=== PATIENT | female | born 1980 | race Caucasian/White ===

== ENCOUNTER 2016-10-31 13:16 | Emergency (ER) | payer OTHER ==
[2016-10-31 13:39] VITALS: BP 121/78; PULSE 70; RESP 16; TEMP 98.2; O2SAT 99
[2016-10-31] MEDS ORDERED: Sodium Chloride 0.9% 1,000 ML IV ONE (14:18)
--- NOTE | 2016-10-31 14:23 | C.PDOC ---
History Of Present Illness 35 y/o female hx of cholelithiasis presents to the ED with complaints of RUQ pain since last night with associated nausea and vomiting. Denies fever, chills SOB or any other complaints. Time Seen by Provider: 10/31/16 14:11 Chief Complaint (Nursing): Abdominal Pain History Per: Patient History/Exam Limitations: no limitations Onset/Duration Of Symptoms: Hrs Current Symptoms Are (Timing): Still Present Severity: Moderate Location Of Pain/Discomfort: RUQ Radiation Of Pain To:: None Quality Of Discomfort: "Pain" Associated Symptoms: Nausea, Vomiting. denies: Fever, Chest Pain Exacerbating Factors: None Alleviating Factors: None Recent travel outside of the [place]: No Past Medical History Reviewed: Historical Data, Nursing Documentation, Vital Signs Vital Signs: Last Vital Signs Temp 98.2 F 10/31/16 13:39 Pulse 70 10/31/16 13:39 Resp 16 10/31/16 13:39 BP 121/78 10/31/16 13:39 Pulse Ox 99 10/31/16 15:22 - Medical History PMH: Gall Bladder Disease Family History: States: Unknown Family Hx - Social History Hx Tobacco Use: No Hx Alcohol Use: No Hx Substance Use: No - Immunization History Hx Tetanus Toxoid Vaccination: No Hx Influenza Vaccination: No Hx Pneumococcal Vaccination: No Review Of Systems Except As Marked, All Systems Reviewed And Found Negative. Constitutional: Negative for: Fever Gastrointestinal: Positive for: Nausea, Vomiting, Abdominal Pain. Negative for : Diarrhea Genitourinary: Negative for: Vaginal Bleeding Physical Exam - Physical Exam Appears: Non-toxic, No Acute Distress Skin: Warm, Dry, No Rash Head: Atraumatic, Normacephalic Chest: Symmetrical Cardiovascular: Rhythm Regular Respiratory: Normal Breath Sounds, No Rales, No Rhonchi, No Wheezing Gastrointestinal/Abdominal: Soft, Tenderness (RUQ), No Guarding, No Rebound Neurological/Psych: Oriented x3, Normal Speech, Normal Cognition ED Course And Treatment O2 Sat by Pulse Oximetry: 99 (room air) Pulse Ox Interpretation: Normal Medical Decision Making Medical Decision Making: r/o cholecystitis - labs imaging pending [id number] notified, pt eloped from er Disposition - Disposition Disposition: ELOPEMENT - ER ONLY Disposition Time: 03:00 Condition: UNKNOWN - Clinical Impression Clinical Impression: Abdominal pain - Scribe Statement The provider has reviewed the documentation as recorded by the Fiordaliza Kent Provider Attestation: All medical record entries made by the Fiordaliza were at my direction and personally dictated by me. I have reviewed the chart and agree that the record accurately reflects my personal performance of the history, physical exam, medical decision making, and the department course for this patient. I have also personally directed, reviewed, and agree with the discharge instructions and disposition.
== END 2016-10-31 15:22 | disposition left against medical advice (07) ==
LOC: C.ER 13:16
DX: R10.11 Right upper quadrant pain (principal)

== ENCOUNTER 2017-03-22 12:44 | Emergency (ER) | payer SELFPAY ==
[2017-03-22 13:05] VITALS: RESP 20
--- NOTE | 2017-03-22 13:13 | C.PDOC ---
History Of Present Illness 36 year old female with Hx of gallbladder disease and stones presents to the ED c/o epigastric pain. Patient reports today pain is intense, constant associated with nausea. Patient reports taking Zantac with no relief. Patient denies fever , diarrhea, fever. Time Seen by Provider: 03/22/17 13:08 Chief Complaint (Nursing): Abdominal Pain History Per: Patient History/Exam Limitations: no limitations Onset/Duration Of Symptoms: Days Current Symptoms Are (Timing): Still Present Location Of Pain/Discomfort: Epigastric Radiation Of Pain To:: None Quality Of Discomfort: "Pain" Associated Symptoms: Nausea. denies: Fever, Chills, Vomiting, Diarrhea Alleviating Factors: None Recent travel outside of the [place]: No Additional History Per: Patient Abnormal Vaginal Bleeding: No Past Medical History Reviewed: Historical Data, Nursing Documentation, Vital Signs Vital Signs: Last Vital Signs Temp 97.8 F 03/22/17 15:51 Pulse 74 03/22/17 15:51 Resp 20 03/22/17 15:51 BP 110/68 03/22/17 15:51 Pulse Ox 98 03/22/17 15:51 - Medical History PMH: Gall Bladder Disease Surgical History: No Surg Hx Family History: States: Unknown Family Hx - Social History Hx Tobacco Use: No Hx Alcohol Use: No Hx Substance Use: No - Immunization History Hx Tetanus Toxoid Vaccination: No Hx Influenza Vaccination: No Hx Pneumococcal Vaccination: No Review Of Systems Constitutional: Negative for: Fever, Chills Cardiovascular: Negative for: Chest Pain, Palpitations Respiratory: Negative for: Cough, Shortness of Breath Gastrointestinal: Positive for: Nausea, Abdominal Pain. Negative for: Vomiting , Diarrhea Genitourinary: Negative for: Dysuria, Hematuria Skin: Negative for: Rash Neurological: Negative for: Weakness, Numbness Physical Exam - Physical Exam Appears: Non-toxic, Other (Uncomfortable ) Skin: Normal Color, Warm, Dry Head: Atraumatic, Normacephalic Nose: No Discharge Oral Mucosa: Moist Neck: Normal ROM, Supple Chest: Symmetrical Cardiovascular: Rhythm Regular, No Murmur Respiratory: Normal Breath Sounds, No Rales, No Rhonchi, No Wheezing Gastrointestinal/Abdominal: Soft, Tenderness (Epigastric), Guarding, No Rebound Extremity: Normal ROM, No Pedal Edema, No Calf Tenderness, No Swelling Neurological/Psych: Oriented x3, Normal Speech, Normal Cognition Gait: Steady ED Course And Treatment - Laboratory Results Result Diagrams: 03/22/17 13:26 03/22/17 13:26 Lab Interpretation: Abnormal (Elevated LFTs with Bili 2.3) O2 Sat by Pulse Oximetry: 99 (On RA) Pulse Ox Interpretation: Normal - CT Scan/US US abdomen complete Other Rad Studies (CT/US): Read By Radiologist, Radiology Report Reviewed CT/US Interpretation: FINDINGS: LIVER: Measures 14.8 cm in sagittal dimension. Echogenic liver may be seen in setting of hepatic parenchymal disease or fatty infiltration. No focal hepatic mass identified. The main portal vein appears patent with normal directional flow. No intrahepatic bile duct dilatation. GALLBLADDER: Gallstones. No gallbladder wall thickening. Negative sonographic Pendleton's sign as assessed by the surgical brace maker. COMMON BILE DUCT: Measures 5 mm. PANCREAS: Not well visualized. RIGHT KIDNEY: Measures 10.7 x 3.7 x 4.1cm. No obstructing calculus or hydronephrosis identified. LEFT KIDNEY: Measures 11.2 x 3.5 x 5.3cm. No obstructing calculus or hydronephrosis identified. SPLEEN: Measures approximately 10.8 cm. AORTA: Limited views appear unremarkable. IVC: Limited views appear unremarkable. OTHER FINDINGS: None. IMPRESSION: Echogenic liver may be seen in setting of hepatic parenchymal disease or fatty infiltration. Cholelithiasis. Reevaluation Time: 16:02 Reassessment Condition: Improved (Much better and pain free after IV Morphine.) Medical Decision Making Medical Decision Making: Plan: * Blood work ordered * Morphine 2 mg IVP given * UA ordered * Abdomen US ordered Disposition Counseled Patient/Family Regarding: Studies Performed, Diagnosis, Need For Followup, Rx Given - Disposition Referrals: [facility] [Outside] Disposition: HOME/ ROUTINE Disposition Time: 16:04 Condition: IMPROVED Prescriptions: Dicyclomine [Bentyl] 20 mg PO QID PRN #20 tab PRN Reason: Pain, Moderate (4-7) Instructions: Biliary Colic (ED) Forms: [facility] (Armenian), [facility] (Uzbek) Print Language: INDIAN - Clinical Impression Clinical Impression: Biliary colic - Scribe Statement The provider has reviewed the documentation as recorded by the Scribe Jeremiah Mueller All medical record entries made by the Scribe were at my direction and personally dictated by me. I have reviewed the chart and agree that the record accurately reflects my personal performance of the history, physical exam, medical decision making, and the department course for this patient. I have also personally directed, reviewed, and agree with the discharge instructions and disposition.
[2017-03-22 13:31] LABS: BASO # 0.1 K/uL (0.0-0.2); BASO % 0.6 % (0.0-2.0); EOS # 0.1 K/uL (0.0-0.7); EOS % 1.6 % (0.0-4.0); HEMATOCRIT 39.3 % (34.0-47.0); LYMPH # 1.5 K/uL (1.0-4.3); LYMPH % 18.3 % (20.0-40.0); MEAN CELL VOLUME 83.5 fL (81.0-99.0); MEAN CORPUSCULAR HEMOGLOBIN 27.5 pg (27.0-31.0); MEAN PLATELET VOLUME 8.4 fL (7.2-11.7); MONO # 0.9 K/uL (0.0-0.8); MONO % 10.9 % (0.0-10.0); RED CELL DISTRIBUTION WIDTH 14.4 % (11.5-14.5); WHITE BLOOD COUNT 8.5 K/uL (4.8-10.8)
[2017-03-22 13:51] LABS: ALKALINE PHOSPHATASE 113 U/L (38-126); ALT/SGPT 502 U/L (9-52); AST/SGOT 585 U/L (14-36); BILIRUBIN,TOTAL 2.3 mg/dL (0.2-1.3); BLOOD UREA NITROGEN 11 mg/dL (7-17); CALCIUM 8.6 mg/dl (8.6-10.4); CARBON DIOXIDE 33 mmol/L (22-30); CHLORIDE 100 mmol/L (98-107); GFR AFRICAN-AMERICAN > 60; GLUCOSE,RANDOM 98 mg/dL (65-105); POTASSIUM 3.5 mmol/L (3.6-5.2); SODIUM 140 mmol/L (132-148); TOTAL PROTEIN 8.9 g/dL (6.3-8.3)
--- NOTE | 2017-03-22 14:07 | US ---
HISTORY: abd pain COMPARISON: Limited abdominal ultrasound performed 03/07/16 TECHNIQUE: Sonographic evaluation of the abdomen. FINDINGS: LIVER: Measures 14.8 cm in sagittal dimension. Echogenic liver may be seen in setting of hepatic parenchymal disease or fatty infiltration. No focal hepatic mass identified. The main portal vein appears patent with normal directional flow. No intrahepatic bile duct dilatation. GALLBLADDER: Gallstones. No gallbladder wall thickening. Negative sonographic Pendleton's sign as assessed by the aeronautical test engineer. COMMON BILE DUCT: Measures 5 mm. PANCREAS: Not well visualized. RIGHT KIDNEY: Measures 10.7 x 3.7 x 4.1cm. No obstructing calculus or hydronephrosis identified. LEFT KIDNEY: Measures 11.2 x 3.5 x 5.3cm. No obstructing calculus or hydronephrosis identified. SPLEEN: Measures approximately 10.8 cm. AORTA: Limited views appear unremarkable. IVC: Limited views appear unremarkable. OTHER FINDINGS: None. IMPRESSION: Echogenic liver may be seen in setting of hepatic parenchymal disease or fatty infiltration. Cholelithiasis.
[2017-03-22 14:36] LABS: URINE BILIRUBIN NEGATIVE (NEGATIVE); URINE BLOOD 1+ (NEGATIVE); URINE COLOR Yellow (YELLOW); URINE GLUCOSE (UA) NORMAL (Normal); URINE KETONE NEGATIVE (NEGATIVE); URINE LEUKOCYTE ESTERASE NEG Leu/uL (Negative); URINE PROTEIN NEGATIVE (NEGATIVE)
[2017-03-22 14:56] LABS: RBC URINE 5 /hpf (0-3)
[2017-03-22 14:57] LABS: URINE BACTERIA FEW (<OCC); WBC URINE 1 /hpf (0-5)
[2017-03-22 15:52] VITALS: BP 110/68; PULSE 74; TEMP 97.8
[2017-03-22 16:09] VITALS: O2SAT 99
== END 2017-03-22 16:19 | disposition home or self-care (01) ==
LOC: C.ER 12:44
DX: K80.70 Calculus of gallbladder and bile duct without cholecystitis without obstruction (principal)
CPT/HCPCS: 76700; 80053; 81001; 83690; 84703; 85025; 96374; 99285; J2270

== ENCOUNTER 2017-06-18 17:56 | Emergency (ER) | payer SELFPAY ==
[2017-06-18 18:08] VITALS: BP 118/77; PULSE 77; RESP 18; TEMP 97.4; O2SAT 100
--- NOTE | 2017-06-19 00:55 | C.PDOC ---
Chief Complaint (Nursing): Abdominal Pain Past Medical History Vital Signs: Last Vital Signs Temp 97.4 F L 06/18/17 18:05 Pulse 77 06/18/17 18:05 Resp 18 06/18/17 18:05 BP 118/77 06/18/17 18:05 Pulse Ox 100 06/18/17 18:05 - Medical History PMH: Gall Bladder Disease Family History: States: Unknown Family Hx - Social History Hx Tobacco Use: No Hx Alcohol Use: No Hx Substance Use: No - Immunization History Hx Tetanus Toxoid Vaccination: No Hx Influenza Vaccination: No Hx Pneumococcal Vaccination: No ED Course And Treatment O2 Sat by Pulse Oximetry: 100 Disposition - Disposition
== END 2017-06-18 18:54 | disposition left against medical advice (07) ==
LOC: C.ER 17:56
DX: Z02.89 Encounter for other administrative examinations (principal); R10.11 Right upper quadrant pain

== ENCOUNTER 2017-09-19 23:43 | Emergency (ER) | payer SELFPAY ==
[2017-09-19 23:52] VITALS: RESP 18
[2017-09-20] MEDS ORDERED: Sodium Chloride 0.9% 1,000 ML IV ONE (00:50)
--- NOTE | 2017-09-20 00:50 | C.PDOC ---
History Of Present Illness Patient presents to the ER with a complaint of abdominal pain associated with some nausea. Patient states she has a Hx of gallstones and notes it feels the same way. Patient was also seen in June for abdominal pain. Denies fever or vomiting. Time Seen by Provider: 09/20/17 00:49 Chief Complaint (Nursing): Abdominal Pain History Per: Patient History/Exam Limitations: no limitations Onset/Duration Of Symptoms: Hrs Current Symptoms Are (Timing): Still Present Severity: Moderate Pain Scale Rating Of: 4 Location Of Pain/Discomfort: RUQ Radiation Of Pain To:: None Quality Of Discomfort: Unable To Describe Associated Symptoms: Nausea. denies: Fever, Chills, Vomiting, Diarrhea Exacerbating Factors: None Alleviating Factors: None Recent travel outside of the [place]: No Past Medical History Reviewed: Historical Data, Nursing Documentation, Vital Signs Vital Signs: Last Vital Signs Temp 97.6 F 09/19/17 23:49 Pulse 73 09/19/17 23:49 Resp 18 09/19/17 23:49 BP 173/60 H 09/20/17 04:00 Pulse Ox 100 09/20/17 01:16 - Medical History PMH: Gall Bladder Disease Family History: States: No Known Family Hx - Social History Hx Tobacco Use: No Hx Alcohol Use: Yes Hx Substance Use: No - Immunization History Hx Tetanus Toxoid Vaccination: No Hx Influenza Vaccination: No Hx Pneumococcal Vaccination: No Review Of Systems Constitutional: Negative for: Fever Cardiovascular: Negative for: Chest Pain, Palpitations Respiratory: Negative for: Cough, Shortness of Breath Gastrointestinal: Positive for: Nausea, Abdominal Pain. Negative for: Vomiting Physical Exam - Physical Exam Appears: Non-toxic Skin: Warm, Dry Head: Normacephalic Oral Mucosa: Moist Chest: Symmetrical, No Tenderness Cardiovascular: Rhythm Regular Respiratory: No Rales, No Rhonchi, No Wheezing Gastrointestinal/Abdominal: Soft, Tenderness (RUQ), No Guarding, No Rebound Neurological/Psych: Oriented x3 ED Course And Treatment - Laboratory Results Result Diagrams: 09/20/17 01:03 09/20/17 01:03 O2 Sat by Pulse Oximetry: 100 (Room air) Pulse Ox Interpretation: Normal Progress Note: Blood work and urinalysis ordered. Morphine, zofran, and IV fluids administered. Reevaluation Time: 05:00 Reassessment Condition: Improved Against Medical Advice - AMA Patient Left Against Medical Advice: The patient declines admission to the hospital and wishes to leave the Emergency Department. This action is against my medical advice. This decision was made with informed refusal. The patient was told that admission to the hospital is necessary. Explanation of the reasons why were discussed. The risks of leaving were explained to the patient and include, but are not limited to, worsening of known or currently unknown conditions, permanent disability and from undiagnosed or untreated conditions. The patient has the capacity to make this informed decision and understands my explanation of the current medical problem and risks of leaving. The patient voluntarily accepts these risks and signed an AMA form documenting our conversation. The patient was given the opportunity to ask questions and reconsider. The patient was encouraged to return to the Emergency Department at any time for further care. pt does not want to be hospitalized because she has her [place] citizenship test in am. Encouraged to return Disposition Counseled Patient/Family Regarding: Studies Performed, Diagnosis, Need For Followup - Disposition Referrals: [facility] [Outside] [facility] [Outside] Disposition: AGAINST MEDICAL ADVICE Disposition Time: 00:49 Condition: FAIR Prescriptions: Ondansetron ODT [Zofran ODT] 1 odt PO BID PRN #6 odt PRN Reason: Nausea/Vomiting traMADol [Ultram] 50 mg PO TID PRN #15 tab PRN Reason: Pain, Severe (8-10) Instructions: Gallstones (DC), Pancreatitis (DC) Forms: [facility] (Tamazight) - Clinical Impression Clinical Impression: Cholelithiasis, Abdominal pain, Biliary colic, Pancreatitis - Scribe Statement The provider has reviewed the documentation as recorded by the Scribra Ortega All medical record entries made by the Huberibra were at my direction and personally dictated by me. I have reviewed the chart and agree that the record accurately reflects my personal performance of the history, physical exam, medical decision making, and the department course for this patient. I have also personally directed, reviewed, and agree with the discharge instructions and disposition.
[2017-09-20 01:06] LABS: BASO % 0.6 % (0.0-2.0); EOS # 0.1 K/uL (0.0-0.7); EOS % 1.5 % (0.0-4.0); LYMPH % 24.8 % (20.0-40.0); MEAN CELL VOLUME 83.5 fL (81.0-99.0); MEAN CORPUSCULAR HEMOGLOBIN 27.8 pg (27.0-31.0); MEAN CORPUSCULAR HGB CONC 33.3 g/dL (33.0-37.0); MONO # 0.9 K/uL (0.0-0.8); MONO % 11.7 % (0.0-10.0); NEUT # 4.9 K/uL (1.8-7.0); NEUT % 61.4 % (50.0-75.0); RBC 4.33 Mil/uL (3.80-5.20); RED CELL DISTRIBUTION WIDTH 14.4 % (11.5-14.5); WHITE BLOOD COUNT 7.9 K/uL (4.8-10.8)
[2017-09-20 01:17] LABS: INR 1.2; PROTHROMBIN TIME 12.8 SECONDS (9.7-12.2)
[2017-09-20] MEDS ORDERED: Morphine 4 MG/ML VIAL ONE (01:19)
[2017-09-20 01:42] LABS: ALB/GLOB RATIO 1.4 (1.0-2.1); ALBUMIN 4.3 g/dL (3.5-5.0); ALT/SGPT 424 U/L (9-52); AST/SGOT 656 U/L (14-36); BLOOD UREA NITROGEN 16 mg/dL (7-17); CALCIUM 9.3 mg/dl (8.6-10.4); GFR AFRICAN-AMERICAN > 60; GFR NON-AFRICAN AMERICAN > 60
[2017-09-20 02:02] LABS: SQUAMOUS EPITHIAL < 1 /hpf (0-5); URINE BILIRUBIN NEGATIVE (NEGATIVE); URINE BLOOD NEGATIVE (NEGATIVE); URINE CLARITY Clear (Clear); URINE COLOR Straw (YELLOW); URINE GLUCOSE (UA) NORMAL (Normal); URINE LEUKOCYTE ESTERASE NEG Leu/uL (Negative); URINE PROTEIN NEGATIVE (NEGATIVE); URINE UROBILINOGEN NORMAL mg/dL (0.2-1.0)
[2017-09-20 02:06] LABS: HCG,QUALITATIVE URINE NEGATIVE (NEGATIVE)
[2017-09-20 02:10] LABS: LIPASE 6865 U/L (23-300)
[2017-09-20] MEDS ORDERED: Iodixanol 320 MG/ML 100 ML BOTTLE IV ONE (02:54)
--- NOTE | 2017-09-20 04:25 | US ---
EXAM: US Abdomen Limited, Right Upper Quadrant EXAM DATE/TIME: 09/20/2017 1:44 AM CLINICAL HISTORY: 36 years old, female; Pain; Abdominal pain; Epigastric; Additional info: Ruq pain, elevated liver enzymes TECHNIQUE: Real-time ultrasound of the right upper quadrant with image documentation. COMPARISON: Prior right upper quadrant ultrasound of 2015-06-30 FINDINGS: Gallbladder: Appears partially contracted, which somewhat limits evaluation. Contains extensive small, shadowing gallstones. No significant gallbladder wall thickening noted. No evidence of pericholecystic fluid. Reportedly negative sonographic Pendleton's sign. Common bile duct: Does not appear abnormally dilated, measuring less than 6 mm in diameter. Liver: Within normal limits in appearance. Measures 15.6 cm in length. Normal flow seen in the main portal vein on color and Doppler imaging. Pancreas: Imaged portions appear unremarkable. Right kidney: Contains at least 2 rounded, echogenic foci, most likely representing nonobstructing right renal stones. The largest of these measures 7 mm. Otherwise within normal limits in appearance. Measures 10.4 cm in length. No evidence of hydronephrosis. IMPRESSION: Extensive gallstones. No definite sonographic evidence of acute cholecystitis. Nonobstructing renal stones. See above for remaining findings.
--- NOTE | 2017-09-20 04:37 | CT ---
EXAM: CT Abdomen and Pelvis With Intravenous Contrast EXAM DATE/TIME: 09/20/2017 2:15 AM CLINICAL HISTORY: 36 years old, female; Pain; Abdominal pain; Additional info: Elevated liver enzymes and lipase TECHNIQUE: Axial computed tomography images of the abdomen and pelvis with intravenous contrast. All CT scans at this facility use one or more dose reduction techniques, viz.: automated exposure control; ma/kV adjustment per patient size (including targeted exams where dose is matched to indication; i.e. head); or iterative reconstruction technique. Coronal and sagittal reformatted images were created and reviewed. CONTRAST: 100 mL of [id number] administered intravenously. COMPARISON: Recent right upper quadrant ultrasound. FINDINGS: LUNG BASES: No significant abnormality seen. HEART: The right heart chambers are abnormally enlarged compared with the left, of uncertain etiology. No evidence of significant pericardial effusion. ABDOMEN: LIVER: 11 mm low density liver lesion, most likely a cyst. Mild fatty infiltration of the liver. No evidence of diffuse liver lesions. GALLBLADDER AND BILE DUCTS: No CT evidence of acute cholecystitis. No evidence of significant biliary ductal dilatation. PANCREAS: No CT evidence of acute pancreatitis. SPLEEN: No acute abnormality of the spleen identified. ADRENALS: No acute abnormality of the adrenal glands identified. KIDNEYS AND URETERS: Tiny, nonobstructing right renal stone. No evidence of hydroureteronephrosis. STOMACH AND BOWEL: No acute abnormality of the stomach, small bowel or colon identified. No evidence of bowel obstruction. PELVIS: APPENDIX: Appendix is seen, and is within normal limits in appearance. BLADDER: No acute abnormality of the bladder identified. REPRODUCTIVE: 2.5 cm lesion with a thin, enhancing and collapsed soft tissue rim in the right ovary. This has an appearance suggestive of a recently ruptured/involuting ovarian cyst, such as a corpus luteal cyst. Followup pelvic ultrasound as clinically indicated. IUD noted within the uterus. ABDOMEN and PELVIS: INTRAPERITONEAL SPACE: No evidence of free intraperitoneal air or fluid. BONES/JOINTS: Multiple healing left anterior rib fractures. No acute fractures are seen. SOFT TISSUES: Small umbilical hernia, containing only fat. VASCULATURE: No evidence of abdominal aortic aneurysm. No evidence of periaortic hemorrhage. LYMPH NODES: No evidence of diffuse lymphadenopathy. IMPRESSION: - No evidence of significant acute process in the abdomen or pelvis. - Enlarged right heart chambers, of uncertain etiology. Further workup is recommended. - See above for remaining findings.
[2017-09-20 05:29] VITALS: BP 119/82; PULSE 61; TEMP 97.7; O2SAT 99
== END 2017-09-20 05:28 | disposition left against medical advice (07) ==
LOC: SUPCPDRO 23:43 → C.ER 23:43
DX: K80.70 Calculus of gallbladder and bile duct without cholecystitis without obstruction (principal); K85.90 Acute pancreatitis without necrosis or infection, unspecified
CPT/HCPCS: 74177; 76705; 80053; 81001; 83690; 84703; 85025; 85610; 85730; 96374; 96375; 99284; J2270; J2405; J7030; Q9967